=== PATIENT | male | born 1985 | race African-American/Black ===

== ENCOUNTER 2024-01-01 15:23 | Emergency (ER) | payer OTHER ==
[~2024-01-01] VITALS: Ht 180.3 cm; Wt 119.3 kg
[2024-01-01 16:25] VITALS: BP 127/95; PULSE 77; RESP 18; TEMP 97.2; O2SAT 96
[2024-01-01] MEDS ORDERED: NABU-72 PO (16:58)
[2024-01-01] MEDS ORDERED: PRED20TA2 PO (16:58)
== END 2024-01-01 17:05 | disposition home or self-care (01) ==
LOC: ER 15:23
DX: M76.62 Achilles tendinitis, left leg (principal); Z88.0 Allergy status to penicillin
CPT/HCPCS: 73630